=== PATIENT | female | born 1930 | race Caucasian/White ===

== ENCOUNTER 2019-10-05 12:10 | Inpatient (IN) ==
--- NOTE | 2019-10-05 12:29 | Emergency Department Note ---
Lower Extremity Injury HPI General Chief Complaint: Extremity Injury, Lower Stated Complaint: hip fracture Time Seen by Provider: 10/05/19 12:12 Source: patient Mode of arrival: EMS Limitations: no limitations History of Present Illness HPI Narrative: This patient injured her right hip yesterday when she fell on richard e stairs. She came in last night and a plain film was read as normal by the Mal. She came back and had a CT scan as Dr. Cazares was concerned about it. He does see a nondisplaced subcapital fracture on the right. Patient is actually ambulatory that was pretty painful. MD complaint: hip injury and fall Onset (ago): day(s) Injury: Right: hip Type of Injury: blunt Place: home Severity: moderate Improves with: immobilization Worsens with: weight bearing Context: fall, direct blow and walking Related Data Home Medications Medication Instructions Recorded Confirmed aspirin 81 mg tablet,delayed 81 mg PO QDAY 01/07/19 06/20/19 release amiodarone 200 mg tablet 200 mg PO QDAY tab 03/21/19 06/20/19 atorvastatin 20 mg tablet 20 mg PO QHS 03/21/19 06/20/19 furosemide 20 mg tablet 10 mg PO QDAY tab 03/21/19 06/20/19 calcium carbonate 600 mg calcium 600 mg PO QDAY 05/30/19 06/20/19 (1,500 mg) tablet cholecalciferol (vitamin D3) 25 1,000 unit PO QDAY 05/30/19 06/20/19 mcg (1,000 unit) capsule polyethylene glycol 3350 17 17 g PO QDAY 05/30/19 06/20/19 gram/dose oral powder sennosides 25 mg tablet 25 mg PO QDAY 06/20/19 06/20/19 Previous Rx's Medication Instructions Recorded pantoprazole 40 mg tablet,delayed 40 mg PO QDAY #1 tab 11/30/17 release carvedilol 3.125 mg tablet 3.125 mg PO BID #180 tab 01/05/18 prednisone 10 mg PO DAILY #30 tab 06/13/19 albuterol sulfate 90 mcg/actuation 180 mcg INHALATION QID PRN #18 g 06/14/19 aerosol inhaler estradiol 1 g VAGINAL 3XW #42.5 g 06/20/19 levothyroxine 50 mcg tablet 50 mcg PO QDAY #90 tab 06/29/19 levothyroxine 25 mcg tablet 12.5 mcg PO QDAY #45 tab 08/08/19 Allergies Allergy/AdvReac Type Severity Reaction Status Date / Time ciprofloxacin [From CIPRO] Allergy Intermediate Rash Verified 10/05/19 12:14 phenazopyridine Allergy Intermediate Rash Verified 10/05/19 12:14 [From Pyridium] Review of Systems All systems ED: reviewed and negative except as stated. 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) Hypotension (Acute) GI bleed (Acute) UTI (urinary tract infection) (Acute) Acute kidney injury (Acute) Edema (Chronic) Low back pain (Chronic) GODINEZ (dyspnea on exertion) (Chronic) Atrial fibrillation (Chronic) CAD (coronary artery disease) (Chronic) Unstable angina pectoris (Acute) Peripheral arterial disease (Chronic) Weight loss (Chronic) Cerebrovascular disease (Chronic) Kyphosis of cervicothoracic region (Chronic) Contusion of scalp (Acute) Gait instability (Chronic) Gait instability (Acute) Abdominal pain (Chronic) Left carotid bruit (Chronic) Claudication in peripheral vascular disease (Chronic) Constipation (Chronic) RLQ abdominal pain (Chronic) Right-sided chest wall pain (Chronic) Right upper quadrant abdominal pain (Chronic) Hypothyroidism (Chronic) Back pain of thoracolumbar region (Chronic) Right lateral abdominal pain (Chronic) Idiopathic scoliosis (Chronic) Pain in joint of right knee (Chronic) PVD (peripheral vascular disease) (Chronic) Osteoporosis (Chronic) Hypertension, essential, benign (Chronic) Hyperlipidemia (Chronic) Osteoarthrosis (Chronic) COPD (chronic obstructive pulmonary disease) (Chronic) Asthma (Chronic) Medical History (Updated 10/05/19 @ 14:11 by Dax Randolph MD) Asthma (Chronic) Atrial fibrillation (Resolved) 11/21/17 onset Back pain of thoracolumbar region (Chronic) CHF (congestive heart failure) (Chronic) Acute exacerbation improved with IV Lasix in the ED Patient's reports that she diuresed a large amount in the ED Weight down 7 pounds since our last visit less than a month ago, so this may have been water weight Continue Lasix 10 mg daily Home daily weights, and patient to notify us if she gains 2 pounds over 2 days. Cognitive decline (Chronic) Mild dementia, per Dr. Maricarmen Lunsford. She would rather not take medication to slow down the decline. Per patient all has been, symptoms have improved a little since getting thyroid back under control. Dr. Lunsford recommends that she does not drive. states that he retires this summer and then she can start driving. For now she just drives short distances and does not go downtown. Constipation (Chronic) Resolved now that she is euthyroid again. COPD (chronic obstructive pulmonary disease) (Chronic) COPD exacerbation (Acute) Improved on azithromycin and prednisone Complete prednisone taper as prescribed Dysuria (Acute) Likely secondary to peroneal irritation from wiping and vaginal atrophy. Improving with proper hygiene methods. I recommended again that she start topical estrogen cream Hip bursitis, left (Resolved) Hyperlipidemia (Chronic) Hypertension, essential, benign (Chronic) Moderately well controlled at home. I hesitate to increase her control due to her risk for falling and propensity for disequilibrium symptoms. Continue Coreg and Lasix at current dose. Hypothyroidism (Chronic) Well-controlled with Synthroid 62.5 mcg daily. Check TSH. Idiopathic scoliosis (Chronic) Infection of elbow (Resolved) 08/24/2013; Callus right elbow suspicious for a fungal origin Myocardial infarction (Resolved) 11/19/17 NSTEMI. Olecranon bursitis (Resolved) 06/02/2014 Osteoarthrosis (Chronic) Osteoporosis (Chronic) Pain in joint of right knee (Chronic) 12/23/2013. Right knee pain and joint; lower leg effusion Positive depression screening (Acute) PHQ 9 score of 7 today, patient states that it is somewhat difficult. No suicidal ideation. We will get TSH back within normal limits, and then readdress. PVD (peripheral vascular disease) (Chronic) Right lateral abdominal pain (Chronic) Right upper quadrant abdominal pain (Chronic) Right-sided chest wall pain (Chronic) Risk for falls (Chronic) Four-wheel walker with seat at all times recommended Calcium and vitamin D recommended Daily light exercise recommended RLQ abdominal pain (Chronic) Tinea cruris (Resolved) 12/23/2013 Surgical History History of colonoscopy (Resolved 09/03/17) 09/03/17 severe diverticulosis. TA times two. History of esophagogastroduodenoscopy (EGD) (Resolved) 10/20/17 hiatal hernia. History of hernia surgery (Resolved) x2 History of left hip replacement (Resolved) S/P arterial stent (Chronic) 09/[address] Jj. Stented coronary artery (Chronic) 11/19/17 drug-eluting stent to 95% stenosis mid left circumflex artery Family History Father , from horse accident Accidental Mother , age 83 Malignant neoplasm of esophagus Social History Smoking Status: Former smoker Alcohol Intake Frequency: holiday/special occasion only Exam General Limitations: no limitations Head Head: atraumatic and normocephalic Eye Eye: Present normal appearance ENT ENT: Present normal exam Neck Neck: Present normal inspection Chest Chest: Present normal inspection Respiratory Respiratory: Present normal lung sounds bilaterally Cardiovascular Cardiovascular: Present regular rate, normal rhythm and normal heart sounds Adbominal Abdominal: Present soft; Absent distention and tenderness Expanded Lower Extremity Hip/Pelvis: Present normal inspection Upper leg: Present tenderness; Absent full ROM Neurological Neurological: Present alert Psychiatric Psychiatric: Present normal affect Skin Skin: Present warm and dry Course Vital Signs Vital signs: Vital Signs Temperature 97.8 F 10/05/19 12:10 Pulse Rate 55 L 10/05/19 12:10 Respiratory Rate 16 10/05/19 12:10 Blood Pressure 101/61 10/05/19 12:10 Pulse Oximetry (%) 96 10/05/19 12:10 Temperature 97.8 F 10/05/19 12:10 Pulse Rate 58 L 10/05/19 13:33 Respiratory Rate 16 10/05/19 12:10 Blood Pressure 125/47 10/05/19 13:33 Pulse Oximetry (%) 92 10/05/19 13:33 [facility] Narrative Medical decision making narrative: This patient has a subcapital right hip fracture and Dr. Simmons would like to take her to the operating room soon. I discussed the case with Dr. Frazier the hospitalist and he will evaluate her for preop status. Lab Data Lab results reviewed: Yes I reviewed the patient's lab results. Result diagrams: 10/05/19 12:30 10/05/19 12:30 Labs: Lab Results 10/05/19 10/05/19 Range/Units 12:30 12:30 WBC 10.7 (4.50-11.00) K/mcL RBC 3.54 L (3.59-5.38) M/mcL Hgb 12.2 (11.2-15.7) g/dL Hct 37.1 (34.1-44.9) % MCV 104.8 H (80.0-100.0) fL MCH 34.5 H (26.0-34.0) pg MCHC 32.9 (31.0-36.0) g/dL RDW 13.4 (11.5-14.5) % Plt Count 153 (140-440) K/mcL MPV 10.7 H (7.4-10.4) fL Gran % 84.7 H (38.0-78.0) % Lymph % (Auto) 8.1 L (15.5-49.0) % [place] % (Auto) 6.0 (1.0-12.0) % Eos % (Auto) 0.7 (0.0-7.0) % Baso % (Auto) 0.5 (0.0-2.0) % Gran # 9.05 H (1.80-8.00) K/mcL Lymph # (Auto) 0.86 L (1.50-4.80) K/mcL [place] # (Auto) 0.64 (0.10-0.90) K/mcL Eos # (Auto) 0.07 (0.00-0.70) K/mcL Baso # (Auto) 0.05 (0.00-0.30) K/mcL Sodium 140 (133-145) mmol/L Potassium 3.9 (3.3-5.1) mmol/L Chloride 100 (96-108) mmol/L Carbon Dioxide 26 (22-30) mmol/L Anion Gap 14.0 (8-16) BUN 33 H (8-23) mg/dl Creatinine 1.6 H (0.6-1.1) mg/dl GFR Calculation 29 Glucose 105 (70-105) mg/dL Calcium 8.6 (8.6-10.4) mg/dl Total Bilirubin 0.7 (0.0-1.0) mg/dL AST 28 (0-37) U/l ALT 24 (0-40) U/l Alkaline Phosphatase 66 (39-117) U/L Total Protein 6.0 (5.9-8.4) gm/dL Albumin 3.4 (3.2-5.2) gm/dL Globulin 2.6 (2.2-3.7) gm/dL Albumin/Globulin Ratio 1.3 (1.0-2.3) Radiology Data Radiology results reviewed: Yes I reviewed the patient's radiology results. Discharge Plan Patient/Caregiver Discharge Instructions Pt seen by [facility]/PA only: No Clinical Impression: Closed hip fracture Prescriptions: No Action carvedilol 3.125 mg tablet 3.125 mg PO BID Qty: 180 RF: 3 amiodarone 200 mg tablet 200 mg PO QDAY RF: 0 albuterol sulfate 90 mcg/actuation HFA aerosol inhaler 180 mcg INHALATION QID PRN (Reason: shortness of breath or wheezing) Qty: 18 RF: 11 levothyroxine 50 mcg tablet 50 mcg PO QDAY Qty: 90 RF: 0 levothyroxine 25 mcg tablet 12.5 mcg PO QDAY Qty: 45 RF: 3 pantoprazole [Protonix] 40 mg tablet,delayed release (DR/EC) 40 mg PO QDAY Qty: 1 RF: 0 furosemide [Lasix] 20 mg tablet 10 mg PO QDAY RF: 0 atorvastatin 20 mg tablet 20 mg PO QHS RF: 0 aspirin [Adult Aspirin Regimen] 81 mg tablet,delayed release (DR/EC) 81 mg PO QDAY RF: 0 calcium carbonate 600 mg calcium (1,500 mg) tablet 600 mg PO QDAY RF: 0 cholecalciferol (vitamin D3) 25 mcg (1,000 unit) capsule 1,000 unit PO QDAY RF: 0 polyethylene glycol 3350 [Miralax] 17 gram/dose powder 17 g PO QDAY RF: 0 Laxative (sennosides) 25 mg tablet 25 mg PO QDAY RF: 0 estradiol 0.01 % (0.1 mg/gram) cream 1 g VAGINAL 3XW Qty: 42.5 RF: 1 prednisone 10 MG tablet 10 mg PO DAILY Qty: 30 RF: 0 Follow up with: William Hadley DO [Primary Care Provider] - Patient Disposition: Xfer As Inpt ([facility])
[2019-10-05] MEDS: LACTATED RINGERS 1,000 ML IV SCH ×2 (13:05→18:54)
[2019-10-05] MEDS ORDERED: ONDANSETRON 4 MG/2 ML VIAL IV ONE (13:08)
[2019-10-05] MEDS ORDERED: HYDROmorphone 0.5 MG/0.5 ML SYRINGE IV PRN (13:08)
[2019-10-05] MEDS ORDERED: KETAMINE 100 MG/ML ML IV ONE (13:23)
[2019-10-05 13:26] LABS: Basophils # (Auto) 0.05 K/mcL (0.00-0.30); Basophils % (Auto) 0.5 % (0.0-2.0); Eosinophils # (Auto) 0.07 K/mcL (0.00-0.70); Eosinophils % (Auto) 0.7 % (0.0-7.0); Granulocytes % (Auto) 84.7 % (38.0-78.0); Hematocrit 37.1 % (34.1-44.9); Hemoglobin 12.2 g/dL (11.2-15.7); Lymphocytes # (Auto) 0.86 K/mcL (1.50-4.80); Lymphocytes % (Auto) 8.1 % (15.5-49.0); Mean Cell Volume 104.8 fL (80.0-100.0); Mean Corpuscular HGB Conc 32.9 g/dL (31.0-36.0); Mean Platelet Volume 10.7 fL (7.4-10.4); Monocytes # (Auto) 0.64 K/mcL (0.10-0.90); Platelet Count 153 K/mcL (140-440); RBC 3.54 M/mcL (3.59-5.38); Red Cell Distribution Width 13.4 % (11.5-14.5); WBC 10.7 K/mcL (4.50-11.00)
[2019-10-05 13:44] LABS: ALT/SGPT 24 U/l (0-40); AST/SGOT 28 U/l (0-37); Albumin 3.4 gm/dL (3.2-5.2); Albumin/Globulin Ratio 1.3 (1.0-2.3); Alkaline Phosphatase 66 U/L (39-117); Bilirubin,Total 0.7 mg/dL (0.0-1.0); Blood Urea Nitrogen 33 mg/dl (8-23); Calcium 8.6 mg/dl (8.6-10.4); Carbon Dioxide 26 mmol/L (22-30); Chloride 100 mmol/L (96-108); Globulin 2.6 gm/dL (2.2-3.7); Glomerular Filtration Rate 29; Glucose 105 mg/dL (70-105)
--- NOTE | 2019-10-05 14:04 | XRay Report ---
CLINICAL INFORMATION: pre-op COMPARISON: 06/13/2019 FINDINGS: Heart is normal in size. Mildly tortuous thoracic aorta seen as before. The remaining mediastinum and pulmonary vessels are normal. Moderate chronic elevation right diaphragm noted with minor right basilar atelectasis. Lungs otherwise clear. No effusions IMPRESSION: No acute disease Interpreted and Authenticated by: William Cazares 10/05/19
[2019-10-05] MEDS ORDERED: ceFAZolin 2 GM in DEXTROSE 5% IN WATER 50 ML IV SCH (14:15)
--- NOTE | 2019-10-05 14:46 | Consultation ---
DATE OF CONSULTATION: 10/05/2019 REQUESTING PHYSICIAN: Dax Randolph M.D. CONSULTING PHYSICIAN: Zak Simmons M.D. REASON FOR CONSULTATION: Right hip fracture. HISTORY: This is an 88-year-old female who fell yesterday on some stairs injuring her right hip. She came in and had x-rays which were read as normal. However, she continued to have pain and came in and got a CT scan. She was ambulating but with significant pain. She denies other significant injuries. It is made worse with movement or weightbearing, better with immobilizing. PAST MEDICAL HISTORY: Positive for COPD with congestive heart failure, atrial fibrillation, coronary artery disease, hypothyroidism, hypertension, asthma, mild dementia, chronic constipation, osteoporosis. PAST SURGICAL HISTORY: Positive for hernia surgery x2, left hip replacement, stent placement, coronary artery stent placement. SOCIAL HISTORY: She is a former smoker. Occasional alcoholic drink. She lives currently at home with her . FAMILY HISTORY: Positive for mother with cancer of the esophagus. MEDICATIONS: 1. Aspirin 81 mg a day. 2. Amiodarone 200 mg a day. 3. Atorvastatin 20 mg at bedtime. 4. Furosemide 10 mg a day. 5. Calcium supplement. 6. Vitamin D supplement. 7. Polyethylene glycol. 8. Sennosides. ALLERGIES: 1. CIPROFLOXACIN which causes a rash. 2. PYRIDIUM which causes a rash. PHYSICAL EXAMINATION: VITAL SIGNS: Temperature 97.8, pulse 58, respirations 16, blood pressure 125/47. GENERAL: She appears her stated age, in mild distress. HEART: Regular. LUNGS: Clear. EXTREMITIES: Bilateral upper extremity and left lower extremity show no obvious evidence of injury and are normal to inspection, range of motion, stability and strength. Her right lower extremity shows no obvious deformity on inspection. She is tender to palpation over the right hip. Range of motion is normal but painful. Stability is normal. Strength is 4/5. IMAGING: Her x-rays reviewed show no obvious fracture. CT scan shows a nondisplaced femoral neck subcapital fracture. IMPRESSION: Nondisplaced subcapital femoral neck fracture in an 88-year-old female. PLAN: I recommend proceeding with percutaneous screw fixation of the right femoral neck fracture. Risks of surgery discussed include, but not limited to, bleeding; infection; injury to nerves, blood vessels, and other surrounding structures; anesthetic risks; nonunion or malunion of fracture; failure of hardware fixation; possible development of avascular necrosis requiring further surgery to a total hip arthroplasty. She understands these risks and wished to proceed. SANDHYA:kasi Job ID: [id number] Doc ID: [id number] Zak Simmons MD
[2019-10-05 14:57] LABS: Appearance,Urine CLEAR; Bacteria,Urine 0 /hpf (0); Bilirubin,Urine NEG (NEG); Color,Urine YELLOW; Culture Indicated,Urine NO; Glucose,Urine (UA) NEGATIVE (NEG); Ketones,Urine NEG (NEG); Leukocyte Esterase,Urine NEG /uL (NEG); Mucus,Urine FEW /hpf (0); Nitrate,Urine NEG (NEG); Protein,Urine 30 mg/dL (NEG); Specific Gravity,Urine 1.013 (1.000-1.035); Urine Blood NEG mg/dL (<0.03); Urine Hyaline Cast 8 /lpf (0-2); Urine RBC < 1 /hpf (0-1); Urine Squamous Epithelial Cell 0 /hpf (0-4); Urine WBC 5 /hpf (0-4); Urobilinogen,Urine NEG (NEG)
[2019-10-05] MEDS ORDERED: ONDANSETRON 4 MG/2 ML VIAL IV PRN (15:15)
[2019-10-05] MEDS ORDERED: traMADol 50 MG TABLET PO PRN (15:26)
--- NOTE | 2019-10-05 15:42 | Internal Med History&Physical ---
HPI History of Present Illness Patient information: Note initiated : 10/05/19 at 3:41 pm Service Date, if different from initiated Date: [] Patient: Swapna Barfield 88 y/o F admitted on for hip fracture. Chief Complaint: This is an 88-year-old female with a history of COPD not on home oxygen, history of previous fall in the past, previous history of GI bleed, reported history of CAD-patient refused, no history of stroke, gait instability, left hip replacement, peripheral vascular disease, hyperlipidemia, hypertension was brought to the ED following a fall. Patient describes the fall as a mechanical fall as she was going downstairs and started noticing pain and shortening of the hip. Patient was evaluated in the ED and underwent pelvic imaging which was suspicious for subcapsular femoral fracture on the right side and confirmed with a CT. Patient was evaluated by orthopedic surgeon and planning to take her to the OR today. No other active symptoms and blood work-up was unremarkable other than elevated proBNP but patient does not have any other features of heart failure. Explained to the patient the risk factors and patient would like to go for surgery even with a very high risk of perioperative complications History of present illness: Ms. Barfield is a 88 year old F Review of Systems All systems: reviewed and no additional remarkable complaints except as stated Constitutional Constitutional: Present as per HPI and frequent falls; Absent chills, excessive sweating, fatigue, fever(s), night sweats and weakness EENT Eyes: Absent change in vision, discharge, dry eye, irritation, photophobia and spots in vision Ears: Absent decreased hearing and tinnitus Nose, mouth and throat: Absent dizziness, epistaxis, headache(s) and mouth lesions Cardiovascular Cardiovascular: Absent chest pain at rest, diaphoresis, dyspnea, edema, leg edema, orthopnea, palpatations, pedal edema and syncope Respiratory Respiratory: Present wheezing; Absent cough, hemoptysis, dyspnea on exertion, stridor, chest congestion and excessive phlegm production Gastrointestinal Gastrointestinal: Present heartburn; Absent diarrhea, early satiety and loose stools Genitourinary Genitourinary: Present nipple discharge; Absent post void dribbling, urinary frequency and urinary urgency Musculoskeletal Musculoskeletal: Present as per HPI Neurological Neurological: Present abnormal hearing, confusion and memory loss; Absent abnormal speech, dizziness and syncope Psychiatric Psychiatric: Absent hallucinations, panic attacks and visual hallucinations PFSH PFSH Medical History (Updated 10/05/19 @ 14:11 by Dax Randolph MD) Asthma (Chronic) Atrial fibrillation (Resolved) 11/21/17 onset Back pain of thoracolumbar region (Chronic) CHF (congestive heart failure) (Chronic) Acute exacerbation improved with IV Lasix in the ED Patient's reports that she diuresed a large amount in the ED Weight down 7 pounds since our last visit less than a month ago, so this may have been water weight Continue Lasix 10 mg daily Home daily weights, and patient to notify us if she gains 2 pounds over 2 days. Cognitive decline (Chronic) Mild dementia, per Dr. Maricarmen Lunsford. She would rather not take medication to slow down the decline. Per patient all has been, symptoms have improved a little since getting thyroid back under control. Dr. Lunsford recommends that she does not drive. states that he retires this summer and then she can start driving. For now she just drives short distances and does not go downtown. Constipation (Chronic) Resolved now that she is euthyroid again. COPD (chronic obstructive pulmonary disease) (Chronic) COPD exacerbation (Acute) Improved on azithromycin and prednisone Complete prednisone taper as prescribed Dysuria (Acute) Likely secondary to peroneal irritation from wiping and vaginal atrophy. Improving with proper hygiene methods. I recommended again that she start topical estrogen cream Hip bursitis, left (Resolved) Hyperlipidemia (Chronic) Hypertension, essential, benign (Chronic) Moderately well controlled at home. I hesitate to increase her control due to her risk for falling and propensity for disequilibrium symptoms. Continue Coreg and Lasix at current dose. Hypothyroidism (Chronic) Well-controlled with Synthroid 62.5 mcg daily. Check TSH. Idiopathic scoliosis (Chronic) Infection of elbow (Resolved) 08/24/2013; Callus right elbow suspicious for a fungal origin Myocardial infarction (Resolved) 11/19/17 NSTEMI. Olecranon bursitis (Resolved) 06/02/2014 Osteoarthrosis (Chronic) Osteoporosis (Chronic) Pain in joint of right knee (Chronic) 12/23/2013. Right knee pain and joint; lower leg effusion Positive depression screening (Acute) PHQ 9 score of 7 today, patient states that it is somewhat difficult. No suicidal ideation. We will get TSH back within normal limits, and then readdress. PVD (peripheral vascular disease) (Chronic) Right lateral abdominal pain (Chronic) Right upper quadrant abdominal pain (Chronic) Right-sided chest wall pain (Chronic) Risk for falls (Chronic) Four-wheel walker with seat at all times recommended Calcium and vitamin D recommended Daily light exercise recommended RLQ abdominal pain (Chronic) Tinea cruris (Resolved) 12/23/2013 Surgical History History of colonoscopy (Resolved 09/03/17) 09/03/17 severe diverticulosis. TA times two. History of esophagogastroduodenoscopy (EGD) (Resolved) 10/20/17 hiatal hernia. History of hernia surgery (Resolved) x2 History of left hip replacement (Resolved) S/P arterial stent (Chronic) 09/[address] Jj. Stented coronary artery (Chronic) 11/19/17 drug-eluting stent to 95% stenosis mid left circumflex artery Family History Father , from horse accident Accidental Mother , age 83 Malignant neoplasm of esophagus Social History (Updated 07/12/19 @ 14:45 by Mone Almaguer RN) household members: spouse housing: house lives independently: Yes marital status: occupational status: retired smoking status: Former smoker alcohol intake frequency: holiday/special occasion only MEDS/ALLERGIES Home Medications and Allergies Home Medications Medication Instructions Recorded Confirmed Type pantoprazole 40 mg tablet,delayed 40 mg PO QDAY #1 tab 11/30/17 10/05/19 Rx release carvedilol 3.125 mg tablet 3.125 mg PO BID #180 tab 01/05/18 10/05/19 Rx amiodarone 200 mg tablet 200 mg PO QDAY tab 03/21/19 10/05/19 History furosemide 20 mg tablet 10 mg PO QDAY tab 03/21/19 10/05/19 History albuterol sulfate 90 mcg/actuation 180 mcg INHALATION QID PRN #18 g 06/14/19 10/05/19 Rx aerosol inhaler levothyroxine 50 mcg tablet 50 mcg PO QDAY #90 tab 06/29/19 10/05/19 Rx levothyroxine 25 mcg tablet 12.5 mcg PO QDAY #45 tab 08/08/19 10/05/19 Rx Allergies Allergy/AdvReac Type Severity Reaction Status Date / Time ciprofloxacin [From CIPRO] Allergy Intermediate Rash Verified 10/05/19 12:14 phenazopyridine Allergy Intermediate Rash Verified 10/05/19 12:14 [From Pyridium] EXAM Constitutional Vitals: Temp Pulse Resp BP Pulse Ox 97.8 F 55 L 16 132/51 100 10/05/19 12:10 10/05/19 14:01 10/05/19 12:10 10/05/19 14:01 10/05/19 14:01 General appearance: no acute distress and thin Head Head exam: Present atraumatic and normocephalic Eye Eye exam: Present conjunctival injection and EOMI Pupils: Present PERRL ENT ENT exam: Present normal external ear exam and normal oropharynx Neck Neck exam: Present full ROM and lymphadenopathy; Absent tenderness Respiratory Respiratory exam: Present decreased breath sounds, prolonged expiratory phase and wheezes; Absent accessory muscle use, chest wall tenderness and respiratory distress Cardiovascular Cardiovascular exam: Present normal rate and rhythm; Absent diastolic murmur, irregular rhythm, JVD, +S3 and tachycardia Additional comments: S1-S2 soft and hard to hear GI/Abdominal GI/Abdominal exam: Present normal bowel sounds and soft Extremities Exam Extremities exam: Present tenderness and neurovascular intact; Absent pedal edema Back Exam Back exam: Absent CVA tenderness (L) and tenderness Neurological Exam Neurological exam: Present alert, CN II-XII intact and reflexes normal; Absent motor sensory deficit and oriented X3 Additional comments: orineted x 2 Psychiatric Psychiatric exam: Present normal affect and normal mood Skin Skin exam: Present abrasion, erythema, petechiae and rash DATA Data Completed and Pending Labs on day of discharge: Labs from last 24 hours 10/05/19 10/05/19 10/05/19 13:49 13:24 12:30 WBC RBC Hgb Hct MCV MCH MCHC RDW Plt Count MPV Gran % Lymph % (Auto) [place] % (Auto) Eos % (Auto) Baso % (Auto) Gran # Lymph # (Auto) [place] # (Auto) Eos # (Auto) Baso # (Auto) Sodium 140 Potassium 3.9 Chloride 100 Carbon Dioxide 26 Anion Gap 14.0 BUN 33 H Creatinine 1.6 H GFR Calculation 29 Glucose 105 Calcium 8.6 Total Bilirubin 0.7 AST 28 ALT 24 Alkaline Phosphatase 66 Total Protein 6.0 Albumin 3.4 Globulin 2.6 Albumin/Globulin Ratio 1.3 Urine Color Yellow Urine Appearance Clear Urine pH 5.0 Ur Specific [place] 1.013 Urine Protein 30 A Urine Glucose (UA) Negative Urine Ketones Neg Urine Occult Blood Neg Urine Nitrate Neg Urine Bilirubin Neg Urine Urobilinogen Neg Ur Leukocyte Esterase Neg Urine RBC < 1 Urine WBC 5 H Ur Squamous Epith Cells 0 Urine Bacteria 0 Hyaline Casts 8 H Urine Mucus Few Ur Culture Indicated? No COVID-19 PCR Covid-19 negative 10/05/19 12:30 WBC 10.7 RBC 3.54 L Hgb 12.2 Hct 37.1 MCV 104.8 H MCH 34.5 H MCHC 32.9 RDW 13.4 Plt Count 153 MPV 10.7 H Gran % 84.7 H Lymph % (Auto) 8.1 L [place] % (Auto) 6.0 Eos % (Auto) 0.7 Baso % (Auto) 0.5 Gran # 9.05 H Lymph # (Auto) 0.86 L [place] # (Auto) 0.64 Eos # (Auto) 0.07 Baso # (Auto) 0.05 Sodium Potassium Chloride Carbon Dioxide Anion Gap BUN Creatinine GFR Calculation Glucose Calcium Total Bilirubin AST ALT Alkaline Phosphatase Total Protein Albumin Globulin Albumin/Globulin Ratio Urine Color Urine Appearance Urine pH Ur Specific [place] Urine Protein Urine Glucose (UA) Urine Ketones Urine Occult Blood Urine Nitrate Urine Bilirubin Urine Urobilinogen Ur Leukocyte Esterase Urine RBC Urine WBC Ur Squamous Epith Cells Urine Bacteria Hyaline Casts Urine Mucus Ur Culture Indicated? COVID-19 PCR A/P Narrative A/P Narrative: Narrative: Right hip fracture Mechanical fall-patient denied dizziness, presyncope syncope and chest symptoms No active pain during my encounter History of dementia and intermittent confusion Multiple falls in the past and have bruises ER physician discussed with on-call orthopedic surgeon and plan to take her to the OR today Patient is fairly active for the age and she wants to have the surgery even with a moderate high risk perioperative complications Pain control with Tylenol thousand milligrams every 6 hourly and tramadol 25 mg every 6 hourly as needed We will use morphine as a last option 1 mg every 4 hours as needed She is a risk for delirium, aspiration and hypoxia Preoperative evaluation History of COPD not on home oxygen No history of renal failure, no history of CAD Patient was on Lasix but no evidence of active heart failure Patient denied any cardiac symptoms with activities Met score -4 EKG no active ischemic changes No evidence of active anemia She is moderate risk person for moderate her surgery-updated orthopedic surgeon Patient wants to be DNR/DNI-they understand the risk of surgery History of obstructive airway disease Patient reported bronchial asthma and history suggestive of COPD We will use albuterol inhaler as needed Patient is at risk for postop hypoxia and aspiration Underlying dementia and risk of delirium Patient at risk for delirium Believe Seroquel 12.5 at bedtime as needed DVT prophylaxis-we will start heparin subcu every 12 hours postoperatively She needs 28 days of postop DVT prophylaxis next Expect length of stay-2-3 midnights Probably she need placement Time Spent With Patient Time: Total time spent is greater than 50% in coordination of care (as documented) at patient's floor/unit and/or counseling patient:
[2019-10-05] MEDS ORDERED: QUEtiapine 25 MG TABLET PO PRN (15:57)
[2019-10-05] MEDS ORDERED: MELATONIN 3 MG TABLET PO SCH (16:00)
[2019-10-05] MEDS ORDERED: fentaNYL 100 MCG/2 ML VIAL IV PRN (16:14)
[2019-10-05] MEDS ORDERED: IPRATROPIUM/ALBUTEROL 3 ML AMPUL.NEB NEB PRN (16:14)
[2019-10-05] MEDS ORDERED: LACTATED RINGERS 1,000 ML IV SCH (16:15)
--- NOTE | 2019-10-05 16:15 | Brief Operative Note ---
Brief Operative Note Date of procedure: 10/05/19 Pre-op diagnosis: Right nondisplaced femoral neck fracture Post-op diagnosis: same Procedure: Percutaneous screw fixation of right femoral neck fracture Grafts/Implants: Yes (3 6.5 canulated screws) Anesthesia: GETA Findings: non displaced femoral neck fracture Complications: none Surgeon: Zak Simmons [employer] Accounting Clerk: Darwin Talbot Estimated blood loss (cc): 30 Specimens Removed/Pathology: none sent Condition: stable Disposition: PACU
--- NOTE | 2019-10-05 16:26 | XRay Report ---
CLINICAL INFORMATION: right hip pinning COMPARISON: Preoperative films 10/04/2019 FINDINGS: Digital film from the OR show reduction subcapital fracture near-anatomic. The fracture is transfixed by three pins. Mild degenerative changes of the right hip IMPRESSION: ORIF subcapital fracture. Near-anatomic alignment Interpreted and Authenticated by: William Cazares 10/05/19
[2019-10-05] MEDS: ACETAMINOPHEN 325 MG TABLET PO SCH ×2 (18:53→21:23)
[2019-10-05] MEDS: 0.9 % SODIUM CHLORIDE 1,000 ML IV SCH (19:49)
[2019-10-05] MEDS: SENNOSIDES 1 TABLET PO SCH (21:22)
[2019-10-05] MEDS: DOCUSATE SODIUM 100 MG CAPSULE PO SCH (21:23)
[2019-10-05] MEDS: HEPARIN 5,000 UNIT/ML VIAL SQ SCH (21:23)
[2019-10-05] MEDS: 0.9 % SODIUM CHLORIDE 10 ML SYRINGE IV SCH (21:23)
[2019-10-05] MEDS: ceFAZolin 1 GM VIAL IV SCH (23:05)
[2019-10-06] MEDS: ACETAMINOPHEN 325 MG TABLET PO SCH ×4 (04:22→21:44)
[2019-10-06] MEDS: 0.9 % SODIUM CHLORIDE 10 ML SYRINGE IV SCH ×3 (05:44→20:26)
--- NOTE | 2019-10-06 07:12 | General Surgery Progress Note ---
Surgery - Auxiliary Note Subjective Patient Information: Note initiated : 10/06/19 at 7:12 am Service Date, if different from initiated Date: [] Patient: wSapna Barfield 88 y/o F admitted on 10/05/19 for hip fracture. Chief Complaint: no c/o. Pt very confused. bandages c/d/i nvi-distal 1 day s/p R hip percutaneous pinning-stable mobilize with PT
[2019-10-06] MEDS: ceFAZolin 1 GM VIAL IV SCH (07:14)
[2019-10-06 07:22] LABS: Hematocrit 32.8 % (34.1-44.9); Hemoglobin 10.8 g/dL (11.2-15.7); Mean Cell Volume 103.8 fL (80.0-100.0); Mean Corpuscular HGB Conc 32.9 g/dL (31.0-36.0); Mean Platelet Volume 11.3 fL (7.4-10.4); Platelet Count 143 K/mcL (140-440); RBC 3.16 M/mcL (3.59-5.38); Red Cell Distribution Width 13.4 % (11.5-14.5); WBC 6.8 K/mcL (4.50-11.00)
[2019-10-06] MEDS ORDERED: PANTOPRAZOLE 40 MG TABLET PO SCH (07:30)
[2019-10-06 07:55] LABS: ALT/SGPT 14 U/l (0-40); AST/SGOT 22 U/l (0-37); Albumin 2.9 gm/dL (3.2-5.2); Albumin/Globulin Ratio 1.3 (1.0-2.3); Alkaline Phosphatase 58 U/L (39-117); Bilirubin,Total 0.2 mg/dL (0.0-1.0); Calcium 7.9 mg/dl (8.6-10.4); Carbon Dioxide 26 mmol/L (22-30); Chloride 104 mmol/L (96-108); Globulin 2.3 gm/dL (2.2-3.7); Glomerular Filtration Rate 34; Glucose 153 mg/dL (70-105); Thyroid Stimulating Hormone 0.47 uIU/ml (0.27-5.01)
[2019-10-06 07:58] LABS: Blood Urea Nitrogen 18 mg/dl (8-23)
[2019-10-06 08:15] LABS: Band Neutrophils % 4 % (0-10); Macrocytosis 1+ (NONE SEEN); Monocytes % (Manual) 1 % (1-12); Platelet Estimate NORMAL (NORMAL); RBC Morphology ABNORM (NORMAL); Segmented Neutrophils % 95 % (38-78)
[2019-10-06] MEDS: DOCUSATE SODIUM 100 MG CAPSULE PO SCH ×2 (09:03→20:26)
[2019-10-06] MEDS: HEPARIN 5,000 UNIT/ML VIAL SQ SCH ×2 (09:03→20:26)
[2019-10-06] MEDS: 0.9 % SODIUM CHLORIDE 1,000 ML IV SCH ×4 (09:05→23:50)
[2019-10-06] MEDS ORDERED: ALBUTEROL SULFATE 200 PUFF INHALER INH PRN (10:13)
--- NOTE | 2019-10-06 12:57 | Internal Med Progress Note ---
SUBJECTIVE Subjective Patient information: Note initiated : 10/06/19 at 12:55 pm Service Date, if different from initiated Date: [] Patient: Swapna Barfield 88 y/o F admitted on 10/05/19 for hip fracture. Chief Complaint: 88-year-old female with a history of COPD not on home oxygen, history of previous fall in the past, previous history of GI bleed, reported history of CAD-patient refused, no history of stroke, gait instability, left hip replacement, peripheral vascular disease, hyperlipidemia, hypertension was brought to the ED following a fall. Patient describes the fall as a mechanical fall as she was going downstairs and started noticing pain and shortening of the hip. Patient was evaluated in the ED and underwent pelvic imaging which was suspicious for subcapsular femoral fracture on the right side and confirmed with a CT. Patient was evaluated by orthopedic surgeon and planning to take her to the OR today. No other active symptoms and blood work-up was unremarkable other than elevated proBNP but patient does not have any other features of heart failure. Explained to the patient the risk factors and patient would like to go for surgery even with a very high risk of perioperative complications 10/05 Patient postoperatively did well with the pain control Continues to be confused Aspiration precautions and risk of delirium Working with physical therapy Continued home medications restarted this morning Interval history: Narrative: Review of Systems All systems: reviewed and no additional remarkable complaints except as stated Constitutional Constitutional: Present as per HPI and frequent falls; Absent chills, excessive sweating, fatigue, fever(s), night sweats and weakness EENT Eyes: Absent change in vision, discharge, dry eye, irritation, photophobia and spots in vision Ears: Absent decreased hearing and tinnitus Nose, mouth and throat: Absent dizziness, epistaxis, headache(s) and mouth lesions Cardiovascular Cardiovascular: Absent chest pain at rest, diaphoresis, dyspnea, edema, leg edema, orthopnea, palpatations, pedal edema and syncope Respiratory Respiratory: Present wheezing; Absent cough, hemoptysis, dyspnea on exertion, stridor, chest congestion and excessive phlegm production Gastrointestinal Gastrointestinal: Present heartburn; Absent diarrhea, early satiety and loose stools Genitourinary Genitourinary: Present nipple discharge; Absent post void dribbling, urinary frequency and urinary urgency Musculoskeletal Musculoskeletal: Present as per HPI Neurological Neurological: Present abnormal hearing, confusion and memory loss; Absent abnormal speech, dizziness and syncope Psychiatric Psychiatric: Absent hallucinations, panic attacks and visual hallucinations Constitutional Vitals: Vital Signs Temp Pulse Resp BP Pulse Ox 97.7 F 58 L 16 134/64 93 10/06/19 12:00 10/06/19 12:00 10/06/19 12:00 10/06/19 12:00 10/06/19 12:00 Period Temp Pulse Resp BP Sys/[place] Pulse Ox Last 24 Hr 97.2 F-98.0 F 54-85 12-16 108-154/47-86 83-100 Intake and Output 10/05/19 10/06/19 10/06/19 21:59 05:59 13:59 Intake Total 8200 539 2973 Output Total 325 150 Balance 833 0 1000 Weight 100 lb 6.4 oz Intake & Output: Intake & Output 10/05/19 10/06/19 10/06/19 21:59 05:59 13:59 Intake Total 4485 486 9838 Output Total 325 150 Balance 833 0 1000 Weight 100 lb 6.4 oz Intake: IV 558 1000 Sodium Chloride 0.9% 1,000 ml @ 1000 75 mls/hr IV .[id number] [facility] Rx#: [id number] Lactated Ringers 1,000 ml @ 250 508 mls/hr IV .Q4H [facility]AS[facility] Rx#: [id number] Ancef 2 gm In Dextrose 5% in 50 Water 50 ml @ 100 mls/hr IV PREOP [facility]AS[facility] Rx#:[id number] Oral 150 IV - Manual Only 600 Output: Urine Catheter Amount 300 Void Amount 150 Estimated Blood Loss 25 Other: Urine Appearance Clear Clear Urine Color Bright Yellow Bright Yellow Uretheral (Begum) Bright Yellow Urine Odor Normal Normal General appearance: cooperative and mild distress Head Head exam: Present atraumatic, normal inspection and normocephalic Eye Eye exam: Present EOMI; Absent periorbital swelling and scleral icterus ENT ENT exam: Present normal external ear exam and normal oropharynx Respiratory Respiratory exam: Present wheezes; Absent accessory muscle use and respiratory distress Cardiovascular Cardiovascular exam: Present normal rate and rhythm; Absent JVD, +S3 and +S4 GI/Abdominal GI/Abdominal exam: Present soft and diminished bowel sounds; Absent distended Neurological Exam Neurological exam: Present alert and reflexes normal; Absent motor sensory deficit and oriented X3 Psychiatric Psychiatric exam: Absent agitated, anxious and depressed OBJ DATA Labs CBC & Chem 7: 10/06/19 05:35 10/06/19 05:35 Labs: Abnormal Lab Results 10/06/19 10/06/19 10/05/19 05:35 05:35 13:24 RBC 3.16 L Hgb 10.8 L Hct 32.8 L MCV 103.8 H MCH 34.2 H MPV 11.3 H Gran % Lymph % (Auto) Gran # Lymph # (Auto) Seg Neutrophils % 95 H RBC Morphology Abnorm A Macrocytosis 1+ A BUN Creatinine 1.4 H Glucose 153 H Calcium 7.9 L Total Protein 5.2 L Albumin 2.9 L Urine Protein 30 A Urine WBC 5 H Hyaline Casts 8 H 10/05/19 10/05/19 12:30 12:30 RBC 3.54 L Hgb Hct MCV 104.8 H MCH 34.5 H MPV 10.7 H Gran % 84.7 H Lymph % (Auto) 8.1 L Gran # 9.05 H Lymph # (Auto) 0.86 L Seg Neutrophils % RBC Morphology Macrocytosis BUN 33 H Creatinine 1.6 H Glucose Calcium Total Protein Albumin Urine Protein Urine WBC Hyaline Casts Meds: Medications Acetaminophen (Tylenol) 975 mg PO Q6H [facility]; Protocol Last Admin: 10/06/19 09:09 Dose: 975 mg Documented by: Albuterol Sulfate (Ventolin) 1 puff INH QID PRN PRN Reason: shortness of breath or wheezing Amiodarone HCl (Cordarone) 200 mg PO QDAY [facility] Aspirin (Aspirin) 81 mg CHEWED DAILY [facility] Atorvastatin Calcium (Lipitor) 20 mg PO QHS [facility] Carvedilol (Coreg) 3.125 mg PO BIDCC [facility] Docusate Sodium (Colace) 100 mg PO BID [facility] Last Admin: 10/06/19 09:03 Dose: 100 mg Documented by: Heparin Sodium (Porcine) (Heparin) 5,000 unit SQ Q12 [facility] Last Admin: 10/06/19 09:03 Dose: 5,000 unit Documented by: Sodium Chloride (Sodium Chloride 0.9%) 1,000 mls @ 75 mls/hr IV .[id number] [facility] Last Admin: 10/06/19 09:05 Dose: 75 mls/hr Documented by: Levothyroxine Sodium (Synthroid) 12.5 mcg PO QAMAC [facility] Levothyroxine Sodium (Synthroid) 50 mcg PO QAMAC [facility] Melatonin (Melatonin 3mg Tablet) 3 mg PO HSP [facility] Morphine Sulfate (Morphine) 1 mg IV Q4HP PRN; Protocol PRN Reason: Per Pain Protocol Ondansetron HCl (Zofran) 4 mg IV Q6HP PRN PRN Reason: Nausea And Vomiting Pantoprazole Sodium (Protonix) 40 mg PO QAMAC [facility] Quetiapine Fumarate (Seroquel) 12.5 mg PO HS PRN PRN Reason: Insomnia Senna (Senokot) 2 tab PO HS [facility] Last Admin: 10/05/19 21:22 Dose: 2 tab Documented by: Sodium Chloride (Saline Flush) 10 ml IV Q8 [facility] Last Admin: 10/06/19 05:44 Dose: Not Given Documented by: Tramadol HCl (Ultram) 25 mg PO Q4-6HP PRN PRN Reason: Pain A/P Narrative A/P Narrative: Narrative: Right femoral neck fracture-status post percutaneous screw fixation Postoperatively patient remained confused Aspiration precautions-aspiration and dementia with delirium Working with physical therapy Pain control with Tylenol tramadol and as needed morphine Probable atrial fibrillation Patient denied any history of A. fib But patient is on Coreg 3.125 twice daily-continue She is also on amiodarone 200 at home-continued History of obstructive airway disease Patient reported bronchial asthma and history suggestive of COPD We will use albuterol inhaler as needed Underlying dementia and risk of delirium Patient at risk for delirium Believe Seroquel 12.5 at bedtime as needed DVT prophylaxis-we will start heparin subcu every 12 hours postoperatively Time Spent With Patient Time: Total time spent is greater than 50% in coordination of care (as documented) at patient's floor/unit and/or counseling patient: QUALITY VTE Deep Vein Thrombosis/Pulmonary Embolism Present on Admission: No
[2019-10-06] MEDS: CARVEDILOL 3.125 MG TABLET PO SCH (18:11)
[2019-10-06] MEDS: SENNOSIDES 1 TABLET PO SCH (20:26)
[2019-10-06] MEDS ORDERED: ATORVASTATIN 20 MG TABLET PO SCH (21:00)
[2019-10-07] MEDS: ACETAMINOPHEN 325 MG TABLET PO SCH ×2 (04:11→09:13)
[2019-10-07] MEDS: 0.9 % SODIUM CHLORIDE 10 ML SYRINGE IV SCH (05:49)
[2019-10-07] MEDS ORDERED: PANTOPRAZOLE 40 MG TABLET PO SCH (07:30)
[2019-10-07] MEDS: 0.9 % SODIUM CHLORIDE 1,000 ML IV SCH (07:30)
[2019-10-07] MEDS ORDERED: LEVOTHYROXINE 25 MCG TABLET PO SCH (07:30)
[2019-10-07] MEDS ORDERED: LEVOTHYROXINE 50 MCG TABLET PO SCH (07:30)
[2019-10-07 07:48] LABS: Hematocrit 30.2 % (34.1-44.9); Hemoglobin 9.7 g/dL (11.2-15.7); Mean Cell Volume 105.6 fL (80.0-100.0); Mean Corpuscular HGB Conc 32.1 g/dL (31.0-36.0); Mean Platelet Volume 11.3 fL (7.4-10.4); Platelet Count 139 K/mcL (140-440); RBC 2.86 M/mcL (3.59-5.38); Red Cell Distribution Width 13.8 % (11.5-14.5)
[2019-10-07 08:15] LABS: ALT/SGPT < 5 U/l (0-40); AST/SGOT 20 U/l (0-37); Albumin 2.5 gm/dL (3.2-5.2); Albumin/Globulin Ratio 1.1 (1.0-2.3); Alkaline Phosphatase 56 U/L (39-117); Bilirubin,Total 0.2 mg/dL (0.0-1.0); Blood Urea Nitrogen 27 mg/dl (8-23); Calcium 7.8 mg/dl (8.6-10.4); Carbon Dioxide 24 mmol/L (22-30); Chloride 109 mmol/L (96-108); Globulin 2.2 gm/dL (2.2-3.7); Glomerular Filtration Rate 41; Glucose 92 mg/dL (70-105)
[2019-10-07] MEDS: CARVEDILOL 3.125 MG TABLET PO SCH (08:46)
[2019-10-07] MEDS: HEPARIN 5,000 UNIT/ML VIAL SQ SCH (08:47)
[2019-10-07] MEDS: DOCUSATE SODIUM 100 MG CAPSULE PO SCH (08:47)
[2019-10-07] MEDS ORDERED: AMIODARONE HCL 200 MG TABLET PO SCH (09:00)
[2019-10-07] MEDS ORDERED: ASPIRIN 81 MG TAB.CHEW CHEWED SCH (09:00)
[2019-10-07 09:11] LABS: Eosinophils % (Manual) 1 % (0-7); Hypochromasia FEW (NONE SEEN); Lymphocytes % 19 % (15-49); Macrocytosis 1+ (NONE SEEN); Monocytes % (Manual) 6 % (1-12); Platelet Estimate DECREASED (NORMAL); RBC Morphology ABNORM (NORMAL); Segmented Neutrophils % 74 % (38-78)
--- NOTE | 2019-10-07 12:13 | Discharge Summary ---
Discharge Provider Provider Patient information: Note initiated : 10/07/19 at 12:10 pm Service Date, if different from initiated Date: [] Patient: Swapna Barfield 88 y/o F admitted on 10/05/19 for hip fracture. Chief Complaint: [] Date of admission: 10/05/19 17:06 Discharge date: 10/07/19 Primary care physician: William Hadley DO Consults: 10/05/19 Consult to Physician [CONS] Stat Comment: Consulting Provider: Zak Simmons Reason For Exam: Physician to Consult 10/05/19 14:08 Consult to Physician [CONS] Stat Comment: Consulting Provider: Lam Frazier Reason For Exam: Physician to Consult Discharge Meds Discharge Medications Active and Home Medications: Home Medications pantoprazole 40 mg tablet,delayed release 40 mg PO QDAY #1 tab 11/30/17 [Rx Confirmed 10/05/19 Last Taken 10/05/19 08:00] carvedilol 3.125 mg tablet 3.125 mg PO BID #180 tab 01/05/18 [Rx Confirmed 10/05/19 Last Taken 10/05/19 08:00] amiodarone 200 mg tablet 200 mg PO QDAY tab 03/21/19 [History Confirmed 10/05/19 Last Taken 10/05/19 08:00] albuterol sulfate 90 mcg/actuation aerosol inhaler 180 mcg INHALATION QID PRN #18 g 06/14/19 [Rx Confirmed 10/05/19 Last Taken 10/03/19] levothyroxine 50 mcg tablet 50 mcg PO QDAY #90 tab 06/29/19 [Rx Confirmed 10/05/19 Last Taken 10/05/19 06:00] levothyroxine 25 mcg tablet 12.5 mcg PO QDAY #45 tab 08/08/19 [Rx Confirmed 10/05/19 Last Taken 10/05/19 06:00] atorvastatin 20 mg PO QHS 10/05/19 [History Confirmed 10/05/19 Last Taken 10/04/19 21:00] calcium carbonate [Calcium 600] 600 mg PO QDAY 10/05/19 [History Confirmed 10/05/19 Last Taken 10/05/19 08:00] cholecalciferol (vitamin D3) [Vitamin D3] 25 mcg PO QDAY 10/05/19 [History Confirmed 10/05/19 Last Taken 10/05/19 08:00] acetaminophen [Tylenol] 975 mg PO Q6H #30 tab 10/07/19 [Rx Last Taken Unknown] aspirin 325 mg PO BID #60 tab NS 10/07/19 [Rx Last Taken Unknown] COURSE Hospital Course Hospital Course: 88-year-old female with a history of COPD not on home oxygen, history of previous fall in the past, previous history of GI bleed, reported history of CAD-patient refused, no history of stroke, gait instability, left hip replacement, peripheral vascular disease, hyperlipidemia, hypertension was brought to the ED following a fall. Patient describes the fall as a mechanical fall as she was going downstairs and started noticing pain and shortening of the hip. Patient was evaluated in the ED and underwent pelvic imaging which was suspicious for subcapsular femoral fracture on the right side and confirmed with a CT. Patient was evaluated by orthopedic surgeon and planning to take her to the OR today. No other active symptoms and blood work-up was unremarkable other than elevated proBNP but patient does not have any other features of heart failure. Explained to the patient the risk factors and patient would like to go for surgery even with a very high risk of perioperative complications 10/05 Patient postoperatively did well with the pain control Continues to be confused Aspiration precautions and risk of delirium Working with physical therapy Continued home medications restarted this morning Right femoral neck fracture-status post percutaneous screw fixation Postoperatively patient remained confused Her confusion improved overnight Patient is able to work with physical therapy and physical therapy recommended home health PT Anticoagulation options discussed with the patient and she decided to go with aspirin 325 twice daily for 30 days She was to follow-up with outpatient orthopedic in 1 to 2 weeks Working with physical therapy Pain control with Tylenol tramadol and as needed morphine Probable atrial fibrillation Patient denied any history of A. fib But patient is on Coreg 3.125 twice daily-continue She is also on amiodarone 200 at home-continued History of obstructive airway disease Patient reported bronchial asthma and history suggestive of COPD We will use albuterol inhaler as needed Underlying dementia and risk of delirium Patient at risk for delirium Seroquel 12.5 at bedtime as needed Discharge diagnosis: Femur fracture-status post pinning Time Spent with Patient Time attestation: Total time spent providing and/or coordinating discharge services: EXAM Constitutional Vitals: Temp Pulse Resp BP Pulse Ox 98.3 F 52 L 18 131/68 94 10/07/19 08:00 10/07/19 08:00 10/07/19 08:00 10/07/19 08:00 10/07/19 08:00 General appearance: average body habitus and cooperative Head Head exam: Present atraumatic and normal inspection Eye Eye exam: Present EOMI; Absent conjunctival injection and nystagmus ENT ENT exam: Present mucous membranes moist and normal oropharynx Respiratory Respiratory exam: Present wheezes; Absent accessory muscle use and respiratory distress Cardiovascular Cardiovascular exam: Present +S1 and +S2; Absent diastolic murmur, gallop and JVD GI/Abdominal GI/Abdominal exam: Present normal bowel sounds and soft; Absent distended, hypoactive bowel sounds and tenderness Neurological Exam Neurological exam: Present alert, oriented X3 and reflexes normal; Absent abnormal gait and motor sensory deficit Psychiatric Psychiatric exam: Absent agitated, anxious and depressed Discharge Data Data Completed and Pending Labs on day of discharge: Labs from last 24 hours 10/07/19 10/07/19 10/07/19 05:40 05:40 05:40 WBC Cancelled 6.0 RBC Cancelled 2.86 L Hgb Cancelled 9.7 L Hct Cancelled 30.2 L MCV Cancelled 105.6 H MCH Cancelled 33.9 MCHC Cancelled 32.1 RDW Cancelled 13.8 Plt Count Cancelled 139 L MPV Cancelled 11.3 H Gran % Cancelled Lymph % (Auto) Cancelled Maverick % (Auto) Cancelled Eos % (Auto) Cancelled Baso % (Auto) Cancelled Gran # Cancelled Lymph # (Auto) Cancelled Maverick # (Auto) Cancelled Eos # (Auto) Cancelled Baso # (Auto) Cancelled Total Counted 100 Seg Neutrophils % 74 Band Neutrophils % Not Reportable Lymphocytes % 19 Monocytes % (Manual) 6 Eosinophils % (Manual) 1 Differential Comment Cancelled Platelet Estimate Decreased RBC Morphology Abnorm A Hypochromasia Few A Macrocytosis 1+ A Sodium 141 Potassium 3.9 Chloride 109 H Carbon Dioxide 24 Anion Gap 8.0 BUN 27 H Creatinine 1.2 H GFR Calculation 41 Glucose 92 Calcium 7.8 L Magnesium 2.3 Total Bilirubin 0.2 AST 20 ALT < 5 Alkaline Phosphatase 56 Total Protein 4.7 L Albumin 2.5 L Globulin 2.2 Albumin/Globulin Ratio 1.1 Discharge Plan Patient/Caregiver Discharge Instructions Activity: as per physical therapy Diet: Regular Diet Instructions: ORIF of Hip Fracture (DC) Activity Restrictions/Additional Instructions: Discharge Instructions: Do the exercises at home that physical therapy gave you. Weight bearing as tolerated. Wear comfortable clothing for your physical therapy. You have the silver dressing, leave in place for 7-14 days then remove. You may shower with dressing on, pat dry after shower. You may start showering on post op day #2 (ThursdayOctober 06). To avoid constipation while taking any narcotic pain medication, take an over the counter stool softener/laxative. Use ice packs as directed, on for 20 minutes at a time, throughout the day. Ice and elevation will help with pain and swelling. If you have any questions or concerns call your orthopedic surgeon before going to the emergency room. [facility] has a instructional systems design consultant physician 24 hours per day/7 days per week and can be reached at [phone]. Call for fevers above 100.5 or pain not controlled by medication. Your prescriptions are with your discharge information. Some medications were electronically transmitted to your pharmacy of choice. Take Aspirin as prescribed to prevent blood clots (see medication list). You will have [facility] [employer] services, . This discharge packet is provided to you to help keep you informed about your care. We want to ensure you get everything you need when you go home. You will also be receiving a call from us in a few days to follow up with you and see how you are doing since your discharge. This gives us a chance to listen to any concerns you maybe experiencing since you were discharged or any additional needs you may have, as well as providing us feedback on your care experience. We strive to always provide excellent care and thank you for your feedback and for choosing [facility]. Prescriptions: New acetaminophen [Tylenol] 325 mg Tablet 975 mg PO Q6H Qty: 30 RF: 0 aspirin 325 mg tablet 325 mg PO BID Qty: 60 RF: 0 Continued carvedilol 3.125 mg tablet 3.125 mg PO BID Qty: 180 RF: 3 amiodarone 200 mg tablet 200 mg PO QDAY RF: 0 albuterol sulfate 90 mcg/actuation HFA aerosol inhaler 180 mcg INHALATION QID PRN (Reason: shortness of breath or wheezing) Qty: 18 RF: 11 levothyroxine 50 mcg tablet 50 mcg PO QDAY Qty: 90 RF: 0 levothyroxine 25 mcg tablet 12.5 mcg PO QDAY Qty: 45 RF: 3 pantoprazole [Protonix] 40 mg tablet,delayed release (DR/EC) 40 mg PO QDAY Qty: 1 RF: 0 atorvastatin 20 mg Tablet 20 mg PO QHS RF: 0 calcium carbonate [Calcium 600] 600 mg calcium (1,500 mg) Tablet 600 mg PO QDAY RF: 0 cholecalciferol (vitamin D3) [Vitamin D3] 25 mcg (1,000 unit) Capsule 25 mcg PO QDAY RF: 0 Discontinued furosemide [Lasix] 20 mg tablet 10 mg PO QDAY RF: 0 aspirin 81 mg Tablet,Delayed Release (Dr/Ec) 81 mg PO QDAY RF: 0 Follow Up Plan Follow up with: William Hadley DO [Primary Care Provider] - 10/14/19 Darwin Talbot PA-C [Physician Item Processor] - 10/20/19 9:00 am Prognosis: Good Rehab Potential: Fair I certify that the patient requires SNF services: No Overall status at discharge: patient is progressing back to baseline Discharge Orders: Discharge Order (Routine); Ordered 10/07/19 Ordered By: Lam DORAN VTE Deep Vein Thrombosis/Pulmonary Embolism Present on Admission: No
--- NOTE | 2019-10-26 08:13 | Operative Note ---
DATE OF OPERATION: 10/05/2019 PREOPERATIVE DIAGNOSIS: Right nondisplaced femoral neck fracture. POSTOPERATIVE DIAGNOSIS: Right nondisplaced femoral neck fracture. PROCEDURE PERFORMED: Percutaneous screw fixation of the right femoral neck fracture. SURGEON: Zak Simmons MD DOPE EDGER: Van Talbot PA-C. This provider's expertise and technical skill were required throughout the case. The PA assisted with preoperative coordination, intraoperative retraction, wound closure, dressing and splint application, as well as postoperative documentation and care coordination. ANESTHESIA: General. DRAINS: None. SPECIMENS: None. COMPLICATIONS: None. BLOOD LOSS: 30 mL POSTOPERATIVE CONDITION: Stable. INDICATIONS FOR SURGERY: This is an 88-year-old female who sustained a fall, had pain and difficulty bearing weight. She was brought to the emergency department and x-rays showed a nondisplaced femoral neck fracture. FINDINGS AT SURGERY: Nondisplaced femoral neck fracture. Post-screw fixation showed satisfactory hardware position. PROCEDURE IN DETAIL: The patient had been seen preoperatively and informed consent had been obtained after discussion of risks and benefits of surgery. Risks including, but not limited to, bleeding; infection; injury to nerves, blood vessels, and other surrounding structures; anesthetic risks; nonunion or malunion of fracture; failure of hardware fixation; possibility of developing avascular necrosis requiring further surgery. She understood and wished to proceed. Correct operative site was marked and the patient was taken to the operating room. General anesthesia induced. The right hip and lower extremity were then carefully placed in traction with some internal rotation and her leg was flexed and abducted out of the way and carefully padded. Fluoro was brought in to verify maintenance of alignment and then the right hip and leg were then carefully prepped and draped in normal sterile fashion. Timeout was performed verifying patient name, operative site, and plan. Ioban shower curtain drape was placed and then a timeout was performed verifying patient name, operative site, and plan. The fluoro was brought in to identify our starting point and a small incision was made over the lateral hip. Our first guide pin we placed central on the lateral view and along the inferior neck on the AP view. Careful attention was made to start above the lower border of the lesser trochanter. Once we liked our pin position, we then used the drill guide to place our proximal anterior and proximal posterior pins. Once we liked all three pin positions, we then used a ruler to measure and then drilled the near cortex and then three 6.5 mm cannulated screws were placed. Once the screws were all placed we then backed the guide pins back to three different positions and then checked our AP and lateral views. These were saved and then we removed the guide pins completely. We irrigated copiously with saline and then Vicryl was used to close the deep layer and then Monocryl for subcutaneous and elva for skin. Local anesthetic was injected and sterile dressing was applied. The patient was then awakened, extubated, and transferred to recovery in stable condition. SANDHYA:lucho Job ID: [id number] Doc ID: [id number] Zak Simmons MD
== END 2019-10-07 11:15 | disposition home health service (06) | DRG 481 ==
LOC: ED 12:10 → SUR 14:55 → MEDSUR 17:06
PROVIDERS: ADMIT Orthopaedic Surgery; ATTEND Orthopaedic Surgery